=== PATIENT | female | born 1975 | race Caucasian/White ===

== ENCOUNTER 2020-06-23 08:28 | Emergency (ER) | payer OTHER, BC, SELFPAY ==
--- NOTE | ~2020-06-23 | XR_ITS ---
EXAMINATION: XR finger 1st RT min 2V DATE: 06/23/2020 09:04 INDICATION: Trauma to the right thumb TECHNIQUE: Dorsal palmar, lateral and 2 oblique views of the right first digit were obtained COMPARISON: None FINDINGS: Nondisplaced oblique fracture extending across the radial side of the tuft of the right first distal phalanx. No other fractures identified. Bone alignment is normal. Joint spaces are normal. IMPRESSION: 1. Nondisplaced tuft fracture at the right first distal phalanx. Reviewed, dictated and finalized at location A. OR MARKET INTELLIGENCE CONSULTANT
[2020-06-23 08:40] VITALS: BP 121/72; PULSE 91; RESP 20; TEMP 36.5; O2SAT 99
--- NOTE | 2020-06-23 10:17 | ED.UPPEXIN ---
HPI - Extremity Injury (Upper) General Chief Complaint: Extremity Injury, Upper Stated Complaint: right hand injury Time Seen by Provider: 06/23/20 08:49 Source: patient Mode of arrival: ambulatory Limitations: no limitations History of Present Illness HPI narrative: This is a 44-year-old female that presents the emergency department for right thumb injury sustained last night. Reports she accidentally caught the thumb in a door. Reports since she has had bruising and pain to the area. Reports decreased range of motion due to pain. Denies numbness. Related Data Allergies Allergy/AdvReac Type Severity Reaction Status Date / Time No Known Allergies Allergy Verified 06/23/20 08:48 Review of Systems Review of Systems: Narrative: CONSTITUTIONAL: Denies fever MUSCULOSKELETAL: Reports joint pain, and myalgia. NEUROLOGIC: Denies numbness All systems reviewed & are unremarkable except as noted in HPI and below PMFSH Past Medical History Medical History (Updated 06/23/20 @ 10:21 by Emmanuelle Perez PA-C) History of gastroesophageal reflux (GERD) Surgical History Surgical History (Updated 06/23/20 @ 10:17 by Emmanuelle Perez PA-C) History of cholecystectomy History of hysterectomy Family History Family History (Updated 03/10/14 @ 07:13 by DOCTOR UNKNOWN) Other Asthma Diabetes mellitus Family history of arthritis Family history of heart disease in male family member before age 55 Hypertension Social History Social History Smoking status: Never smoker Alcohol intake: current Gender identity (if verbalized by the patient): Female Exam Narrative: Exam Narrative: GENERAL: Well-appearing, well-nourished, and in no acute distress. HEAD: Normocephalic, atraumatic. EYES: EOMI. EXTREMITIES: Normal range of motion. Moderate ecchymosis to the right thumb palmar surface. Small amount of ecchymosis to the base of the nail. Normal sensation. Normal radial pulses SKIN: Warm, dry, no rash. NEURO: No focal deficits. Alert and oriented x3. PSYCH: Normal mood and affect Course Vital Signs Vital signs: Vital Signs Temperature 97.7 F 06/23/20 08:40 Pulse Rate 91 06/23/20 08:40 Respiratory Rate 20 06/23/20 08:40 Blood Pressure 121/72 06/23/20 08:40 Pulse Oximetry 99 06/23/20 08:40 Temperature 97.7 F 06/23/20 08:40 Pulse Rate 91 06/23/20 08:40 Respiratory Rate 20 06/23/20 08:40 Blood Pressure 121/72 06/23/20 08:40 Pulse Oximetry 99 06/23/20 08:40 MDM - Extremity Injury (Upper) MDM Narrative Medical decision making narrative: Patient presents the emergency department for right thumb injury sustained last night. X-ray shows a nondisplaced tuft fracture. Patient placed in a finger splint and given hand surgery for follow-up. She was instructed to rest, ice and take pain medication as needed. She was given warnings to return to the ER Imaging Data Radiologist's impression: ITS Impressions Finger X-Ray 06/23/20 09:05 IMPRESSION: 1. Nondisplaced tuft fracture at the right first distal phalanx. Critical Care Time Critical Care Time Critical Care Time: No Discharge Plan Discharge Clinical Impression: Closed fracture of tuft of distal phalanx of right thumb Patient Disposition: Home, Self-Care Condition: Stable Instructions: Finger Fracture (ED) Additional Instructions: Return to the emergency department if you experience fever, redness and swelling of your hand, your thumb feels cold, numbness, or any other symptoms that are concerning to you Rest. Elevate. Ice to the area. Pain medication as needed Follow-up with hand surgery. Call today to make an appointment Follow-up/Referrals: Jeff Galeas MD [Physician] - 3 Days RAFAT,LEONA GONZALEZ [Primary Care Provider] - Tuan Potter MD [Physician] - 3 Days
== END 2020-06-23 10:43 | disposition home or self-care (01) ==
PROVIDERS: Emergency Provider Emergency Medicine; PCP Nurse Practitioner Family
DX: S62.524A Nondisplaced fracture of distal phalanx of right thumb, initial encounter for closed fracture (principal); K21.9 Gastro-esophageal reflux disease without esophagitis; W23.0XXA Caught, crushed, jammed, or pinched between moving objects, initial encounter
CPT/HCPCS: 29130; 73140; 99284

== ENCOUNTER 2020-08-31 14:47 | Outpatient (CLI) | payer OTHER, BC, SELFPAY ==
--- NOTE | ~2020-08-31 | MM_ITS ---
EXAMINATION: MM screening [facility] BI w [facility] HISTORY: Screening TECHNIQUE: Craniocaudal and mediolateral oblique 3-D tomosynthesis images were obtained and synthetic 2-D images were generated. CAD analysis was submitted and interpreted. COMPARISON: 07/04/2015 BREAST PARENCHYMAL COMPOSITION: There are scattered areas of fibroglandular density. FINDINGS: There is no evidence of suspicious mass, calcification, or architectural distortion to sugg est malignancy in either breast. There has been no suspicious interval change. IMPRESSION: 1. No mammographic evidence of malignancy. 2. Recommend routine screening mammography in one year. BI-RADS Category 1: Negative Reviewed, dictated and finalized at location A. TING ENGINE OPERATOR
== END 2020-08-31 14:48 | disposition home or self-care (01) ==
LOC: ANHIMG 14:52
PROVIDERS: PCP Nurse Practitioner Family; Visit Provider Obstetrics & Gynecology
DX: Z12.31 Encounter for screening mammogram for malignant neoplasm of breast (principal)
CPT/HCPCS: 77063; 77067

== ENCOUNTER → 2020-09-12 00:32 | Outpatient (CLI) | payer BC, SELFPAY ==
[2020-09-12 19:08] LABS: SARS-CoV-2 RNA PCR Negative
== END ==
PROVIDERS: PCP Nurse Practitioner Family; Visit Provider Obstetrics & Gynecology
DX: Z01.812 Encounter for preprocedural laboratory examination (principal); Z20.822 Contact with and (suspected) exposure to COVID-19
CPT/HCPCS: C9803; U0003; U0005

== ENCOUNTER 2020-09-12 15:01 | Outpatient (CLI) | payer BC, SELFPAY | END 2020-09-12 15:02 | disposition home or self-care (01) | PROVIDERS: PCP Nurse Practitioner Family; Visit Provider Obstetrics & Gynecology | DX: Z01.812 Encounter for preprocedural laboratory examination (principal); N83.209 Unspecified ovarian cyst, unspecified side | CPT/HCPCS: 36415; 86850; 86900; 86901 ==

== ENCOUNTER 2020-09-15 00:41 | Day surgery (SDC) | payer BC, SELFPAY ==
[2020-09-11 18:08] VITALS: BMI 33.8
--- NOTE | 2020-09-12 10:19 | PM.IMHP ---
H&P: HPI History of Present Illness Date/Time: 09/12/20 10:19 Chief Complaint: left ov cyst Narrative: Wendy Eubanks is a 45 year old female status post hysterectomy is admitted for laparoscopy and left salpingo-oophorectomy. She has a complex left ovarian cyst that has been present for more than 6 months and she would like to have a definitively removed. Risks and benefits reviewed including but not exclusive of , aspiration pneumonia, bleeding, transfusion, perforation injury to bowel, bladder, ureters, or other internal organs with need for laparotomy. She received the [employer] handout entitled laparoscopy. She had all questions answered. She asked to proceed Review of Systems Review of Systems: All systems reviewed & are unremarkable except as noted in HPI and below PMFSH Past Medical History Medical History History of gastroesophageal reflux (GERD) Surgical History Surgical History History of cholecystectomy History of hysterectomy Family History Family History Other Asthma Diabetes mellitus Family history of arthritis Family history of heart disease in male family member before age 55 Hypertension Social History Social History Smoking status: Never smoker Second hand tobacco smoke exposure: No Alcohol intake: current Substance use: never Gender identity (if verbalized by the patient): Female Spiritual care concerns: No Meds Home Medications and Allergies Home Medications Medication Instructions Recorded Confirmed Type cholecalciferol (vitamin D3) 25 mcg PO DAILY 09/11/20 09/11/20 History [Vitamin D3] fexofenadine-pseudoephedrine 1 tablet PO QAM 09/11/20 09/11/20 History [Chastity-D 24 Hour] montelukast [Singulair] 10 mg PO DAILY 09/11/20 09/11/20 History pantoprazole 40 mg PO DAILY 09/11/20 09/11/20 History vitamin B complex [B 1 tablet PO DAILY 09/11/20 09/11/20 History Complex-Vitamin B12] Allergies Allergy/AdvReac Type Severity Reaction Status Date / Time No Known Allergies Allergy Verified 09/11/20 17:47 Exam Const: General: no acute distress Eyes: General: appearance normal, both eyes and all related structures Neck: Neck: supple and no JVD Thyroid: thyroid normal Resp: Effort & Inspection: normal respiratory effort Auscultation: clear to auscultation bilaterally Cardio: Rate: regular rate Rhythm: regular rhythm GI: Inspection: non-distended GI Palp: Yes Soft to palpation, No Tenderness to palpation present (GI) and No Guarding due to palpation present (GI) Auscultation: normal bowel sounds : General: Yes bladder normal to inspection External Female Exam: normal external appearance Speculum Exam - Cervix: Cervix absent Bimanual exam- vagina & uterus: uterus absent Skin: General skin exam: no rashes or lesions noted Extrem: General: normal to inspection and no edema Psych: Mental Status: mental status grossly normal Affect: normal affect Assessment and Plan Additional Plan impression: Complex left ovarian cyst Plan: Laparoscopic left salpingo-oophorectomy
[2020-09-15] VITALS (9 sets, daily range): BP systolic 116–142; BP diastolic 54–77; PULSE 77–97; RESP 16–22; TEMP 36.1–36.3; O2SAT 97–100
--- NOTE | 2020-09-15 07:01 | WPDHPUPDATE1 ---
History and Physical Update Update Date/Time: 09/15/20 07:01 History and Physical has been reviewed, including an updated exam of the patient. There are NO changes in the patient's condition. Risks, benefits, and alternatives have been discussed and questions answered. Patient agrees to proceed with procedure.
[2020-09-15] MEDS: LACTATED RINGERS 1,000 ML 30 ML IV CONT ×2 (11:05→13:11)
[2020-09-15] MEDS: KETOROLAC 15 MG/ML VIAL (*BKC) IV PUSH (11:14)
[2020-09-15] MEDS: ACETAMINOPHEN 500 MG TABLET 1000 MG PO (11:14)
--- NOTE | 2020-09-15 11:25 | WPDANESEPPF ---
Anes - Initial Pre Proc Eval Procedure: Operation Date: 09/15/20 12:30 Proposed Procedures p Laparoscopic Left Salpingo-Oophorectomy - Mauricio Carias MD Date/Time: 09/15/20 11:25 Surgeon: Mauricio Carias MD Pre Op Diagnosis: Left Ovarian Cyst, Pain Patient Data Age: 45 Gender: F Height: 5 ft 1 in Weight: 81.19 kg Allergies Allergy/AdvReac Type Severity Reaction Status Date / Time No Known Allergies Allergy Verified 09/15/20 11:05 Home Medications Medication Instructions Recorded Confirmed Type cholecalciferol (vitamin D3) 25 mcg PO DAILY 09/11/20 09/11/20 History [Vitamin D3] fexofenadine-pseudoephedrine 1 tablet PO QAM 09/11/20 09/11/20 History [Chastity-D 24 Hour] montelukast [Singulair] 10 mg PO DAILY 09/11/20 09/11/20 History pantoprazole 40 mg PO DAILY 09/11/20 09/11/20 History vitamin B complex [B 1 tablet PO DAILY 09/11/20 09/11/20 History Complex-Vitamin B12] hydrocodone-acetaminophen 1 tablet PO Q6H PRN #30 tablet 09/15/20 Rx Patient hx anesthesia problems: post op nausea/vomiting Family hx anesthesia problems: none PMFSH Past Medical History Medical History History of gastroesophageal reflux (GERD) Surgical History Surgical History History of cholecystectomy History of hysterectomy Family History Family History Other Asthma Diabetes mellitus Family history of arthritis Family history of heart disease in male family member before age 55 Hypertension Social History Social History Smoking status: Never smoker Second hand tobacco smoke exposure: No Alcohol intake: current Alcohol use details: occassionally Substance use: never Living arrangements: with family Gender identity (if verbalized by the patient): Female Spiritual care concerns: No Anes - Eval Final PreProcedure Day of Procedure 09/15/20 11:25 Patient weight: overweight Heart: regular rate and rhythm Lungs: clear to auscultation Airway: Mallampati scale class II Neurological: alert and oriented Last oral intake: >/= 8 hours ASA classification: II Emergent: no Anesthetic plan: proceed Anesthesia type and monitoring: general ETT and standard monitoring Informed Consent: The patient's anesthetic plan and its attendant risks and benefits were discussed with the patient/family/POA. Questions were solicited and answers provided to the satisfaction of the patient/family/POA.
[2020-09-15] MEDS: SCOPOLAMINE 1.5 MG PATCH TRANSDERM (12:20)
--- NOTE | 2020-09-15 12:37 | PM.PROC ---
Procedure Note - Detailed Date of procedure: 09/15/20 Pre-op diagnosis: Left Ovarian Cyst, Pain Surgeon: Mauricio Carias MD Postop diagnosis: Complex left ovarian cyst/pelvic pain Procedure: Laparoscopic left salpingo-oophorectomy and lysis of adhesions Anesthesia: General endotracheal EBL: 5cc Findings: Absent uterus. Complex left ovarian cyst. Normal-appearing right ovary. Pelvic adhesions along the left lateral sidewall Complications: None Description procedure: The patient was prepped and draped in the normal sterile fashion placed in the dorsal lithotomy position. Under excellent general endotracheal anesthesia weighted speculum was placed in posterior fornix vagina. Sponge stick was placed in the bladder drained of clear urine. The weighted speculum was removed. The gloves were changed. A supraumbilical incision made the Veress needle passed in the abdomen. The abdomen was filled with CO2 gas [id number]. The 5mm trocar advanced under direct visualization assuring no injury. The patient was placed in Trendelenburg and a suprapubic incision made. The 5mm trocar was advanced under direct visualization assuring no injury a left lower quadrant incision made 8mm trocar advanced under direct visualization assuring no injury. Pelvic adhesions were seen along the left lateral sidewall these were sharply dissected relieving the colon and small bowel from over the top of the tubo-ovarian complex on the left. A large ovarian cyst was seen the right ovary appeared within normal limits and photo documentation was undertaken. The left infundibulopelvic structure was then skeletonized. This was serially clamped, burned, cut with the LigaSure. This was placed in Endo-Catch and removed through the left lower quadrant. Irrigation was undertaken until clear. All pedicles appeared dry. The patient was awakened. The gas removed after gas removed from the abdomen and the incisions closed with 4 Monocryl glue. All sponge, needle instrument counts were correct. There were no immediate complications
--- NOTE | 2020-09-15 12:46 | SUR.OPER ---
URINE 50ML EBL 5ML
[2020-09-15] MEDS: fentaNYL CITRATE INJ (*CRX) 100 MCG/2 ML VIAL 25 MCG IV PUSH ×4 (13:10→13:33)
== END 2020-09-15 15:04 | disposition home or self-care (01) ==
PROVIDERS: PCP Nurse Practitioner Family; Visit Provider Obstetrics & Gynecology
PROC: (CPT 49320; principal; 2020-09-15 12:30)
DX: N83.02 Follicular cyst of left ovary (principal); N83.8 Other noninflammatory disorders of ovary, fallopian tube and broad ligament; N73.6 Female pelvic peritoneal adhesions (postinfective); R10.2 Pelvic and perineal pain; K21.9 Gastro-esophageal reflux disease without esophagitis
CPT/HCPCS: 58661; 88305; A9270; J0330; J1100; J1885; J2250; J2405; J2704; J3010; J7120

== ENCOUNTER 2022-10-10 12:54 | Day surgery (SDC) | payer BC, SELFPAY ==
[2022-10-10] VITALS (10 sets, daily range): BP systolic 109–153; BP diastolic 63–96; PULSE 79–110; RESP 15–20; TEMP 36.3–36.6; O2SAT 92–100
--- NOTE | ~2022-10-10 | US_ITS ---
EXAMINATION: US pelvic complete w TV DATE: 10/10/2022 14:29 INDICATION: Right pelvic mass. TECHNIQUE: Multiple transabdominal and transvaginal sonographic images of the pelvis were obtained. COMPARISON: CT abdomen and pelvis 10/10/2022, 07/10/2018 FINDINGS: TRANSABDOMINAL ULTRASOUND: The uterus is absent. There is no free fluid in the pelvis. TRANSVAGINAL ULTRASOUND: The right ovary measures 9.0 x 5.7 x 7.3 cm. There is a multiloculated cystic mass with thick septati ons in the right ovary measuring 6.7 cm. There is vascular flow in the right ovary. The left ovary is not visualized and reportedly absent. IMPRESSION: 1. 6.7 cm cystic mass in the right ovary suspicious for neoplasm. Consider surgical evaluation. Reviewed, dictated and finalized at [facility]. IMPRESSION: 1. 6.7 cm cystic mass in the right ovary suspicious for neoplasm. Consider surg ical evaluation.
--- NOTE | ~2022-10-10 | CT_ITS ---
EXAMINATION: CT abdomen pelvis wo con DATE: 10/10/2022 13:23 INDICATION: Right flank pain for one day TECHNIQUE: Computed tomography (CT) of the abdomen and pelvis was performed without intravenous contr ast. Automated exposure control and iterative reconstruction technique were employed. Exam dose: 304 .66 mGy-cm total exam DLP. COMPARISON: 07/10/2018 CT abdomen pelvis FINDINGS: The lung bases are clear. Normal heart size. No pericardial or pleural effusion. Status post cholecystectomy. The liver, bile ducts, pancreas, pancreatic duct and spleen are unremark able. Normal morphology of the adrenal glands. There is a pinpoint nonobstructing lower pole right renal calculus. Approximately 4.5 mm upper pole left renal calculus. Approximately 2.3 mm lower pole nonobstructing l eft renal calculus. No ureteral calculi or hydroureteronephrosis. The urinary bladder is relatively e vacuated. Normal caliber of the abdominal aorta. No intraperitoneal or retroperitoneal or pelvic adenopathy or ascites. Up to 5.8 x 6.6 x 7.6 cm lobular complex mixed septated cystic and solid right parasagittal pelvic ma ss sitting atop the urinary bladder. Ovarian neoplasm or ovarian torsion should be considered. Gyneco logic consult is recommended. History of hysterectomy. Normal appendix. Colonic diverticula; no CT evidence of diverticulitis. No bowel obstruction or intra peritoneal free air. Small fat-containing umbilical hernia. IMPRESSION: Right parasagittal pelvic complex up to 7.6 cm mass; ovarian neoplasm is suspected. Melani ot exclude ovarian torsion. History of hysterectomy Diverticulosis of the colon Status post cholecystectomy Mild bilateral nonobstructive nephrolithiasis Dr. Russo telephoned the report on 10/10/2022 to emergency room physician Dr. Barnard. Reviewed, dictated and finalized at [facility]. Reviewed, dictated and finalized at [facility]. IMPRESSION: Right parasagittal pelvic complex up to 7.6 cm mass; ovarian neopl asm is suspected. Cannot exclude ovarian torsion. History of hysterectomy Diverticulosis of the colon Status post cholecystectomy Mild bilateral nonobstructive nephrolithiasis Dr. Russo telephoned the report on 10/10/2022 to emergency room physician Dr. Colleen arita.
--- NOTE | 2022-10-10 13:14 | ED.GENADULT ---
HPI - General Adult General Chief complaint: Back Pain/Injury Stated complaint: kidney stone? Time Seen by Provider: 10/10/22 13:03 Source: RN notes reviewed History of Present Illness HPI narrative: Patient presents emergency part from home for right flank pain. Patient states pain began suddenly approximately 4 hours ago. Pain is located in the right flank and radiates around to the right side of the abdomen described as sharp and stabbing in nature. Associate with nausea. Denies any fevers or chills chest pain shortness of breath vomiting diarrhea or any other symptoms. States he is not taking thing for the pain. Patient has a history of previous kidney stones and feels similar to prior. States he has been seen by Dr. Albright and required lithotripsy in the past Related Data Home Medications Medication Instructions Recorded Confirmed cholecalciferol (vitamin D3) 25 25 mcg PO DAILY 09/11/20 09/11/20 mcg (1,000 unit) tablet (Vitamin D3) fexofenadine-pseudoephedrine ER 1 tablet PO QAM 09/11/20 09/11/20 180 mg-240 mg tablet,ext.release 24 hr (Chastity-D 24 Hour) montelukast 10 mg tablet 10 mg PO DAILY 09/11/20 09/11/20 (Singulair) pantoprazole 40 mg tablet,delayed 40 mg PO DAILY 09/11/20 09/11/20 release vitamin B complex (B 1 tablet PO DAILY 09/11/20 09/11/20 Complex-Vitamin B12 tablet) Allergies Allergy/AdvReac Type Severity Reaction Status Date / Time No Known Allergies Allergy Verified 09/15/20 11:05 Review of Systems Review of Systems: Gen.: Denies fevers or chills ENT: Denies congestion Respiratory: Denies shortness of breath or cough CV: Denies chest pain or palpitations GI: See HPI denies burning, urgency, frequency or hematuria Musculoskeletal: Denies back pain or muscle pain Neuro: Denies numbness, tingling, weakness or focal weakness Skin: Denies rash Except as documented, all other systems reviewed and negative FORMERLY [facility], [facility] Past Medical History Medical History (Updated 10/10/22 @ 15:43 by Tuan Barnard DO) History of gastroesophageal reflux (GERD) Kidney stone Obesity Torsion of right ovary and ovarian pedicle Surgical History Surgical History History of cholecystectomy History of hysterectomy Family History Family History Other Asthma Diabetes mellitus Family history of arthritis Family history of heart disease in male family member before age 55 Hypertension Social History Social History Smoking status: Never smoker Second hand tobacco smoke exposure: No Alcohol intake: current Alcohol use details: occassionally Substance use: never Living arrangements: with family Gender identity (if verbalized by the patient): Female Spiritual care concerns: No Exam Narrative: APPEARANCE: No acute distress, nontoxic, resting in bed HEENT: Normocephalic, atraumatic, OMM RESPIRATORY: No respiratory distress, clear to auscultation bilaterally with no rhonchi wheezing or rales CARDIOVASCULAR: RRR s murmur ABDOMINAL: Soft nondistended tender palpation right upper quadrant right lower quadrant no tenderness in left upper quadrant left lower quadrant no rebound or guarding, right flank tenderness MUSCULOSKELETAl: Moves all extremities. No clubbing, cyanosis or edema. NEURO: Awake and alert. Following commands, speech normal, no focal deficits SKIN:: Warm, dry. Normal Color PSYCHIATRIC: Normal affect/mood Course Course Emergency Course: Discussed with Dr. Russo for radiology following CT scan no signs of kidney stone with ovarian mass on right ovary concern of torsion will obtain ultrasound Reviewed ultrasound with Dr. Cook for radiology does note that there could be concern for torsion 1504 Dr. Shashi Ha down in the emergency department to evaluate patient Discussed with aziza
[2022-10-10] MEDS: SODIUM CHLORIDE 0.9% IV 1,000 ML 999 ML IV CONT (13:18)
[2022-10-10] MEDS: ONDANSETRON INJ 4 MG/2 ML VIAL IV PUSH (13:19)
[2022-10-10 13:21] LABS: Basophils Absolute Auto 0.1 K/mm3 (0.0-0.1); Basophils Percent Auto 0.7 % (0.2-1.2); Eosinophils Absolute Auto 0.1 K/mm3 (0-0.3); Eosinophils Percent Auto 1.3 % (0-4.4); Hematocrit 44.2 % (37.0-47.0); Hemoglobin 14.5 g/dL (12.0-15.0); Immature Granulocyte Absolute 0.03 K/mm3 (0.00-0.031); Immature Granulocyte Percent A 0.3 % (0-0.5); Lymphocytes Absolute Auto 5.41 K/mm3 (0.9-3.2); Lymphocytes Percent Auto 52.9 % (18.3-44.2); Mean Corpuscular HGB Conc 32.8 g/dl (32-36); Mean Corpuscular Hemoglobin 30.5 pg (26-34); Mean Corpuscular Volume 93.1 fl (80-100); Mean Platelet Volume 8.8 fl (7.4-10.4); Monocytes Absolute Auto 0.8 K/mm3 (0.1-0.6); Monocytes Percent Auto 7.5 % (2.6-8.5); Neutrophils Absolute Auto 3.8 K/mm3 (1.3-6.7); Neutrophils Percent Auto 37.3 % (45.5-73.1); Platelet Count Result 286 k/mm3 (150-375); Red Blood Count 4.75 M/mm3 (4.2-5.4); Red Cell Distribution Width 13.2 % (11.5-14.5); White Blood Count 10.2 K/mm3 (4.5-10.0)
[2022-10-10 13:23] LABS: Appearance Urine Clear (Clear); Bilirubin Urine Negative (Negative); Blood Urine Negative (Negative); Color Urine Yellow (Yellow); Glucose Urine UA Negative (Negative); Ketones Urine Negative (Negative); Leukocyte Esterase Ur Negative LEU/UL (Negative); Nitrate Urine Negative (Negative); Protein Urine Negative (Negative); Specific Grav Ur 1.022 (1.001-1.035); Urobilinogen Urine 0.2 mg/dL (<2.0)
[2022-10-10 13:25] LABS: Add Urine Microscopic? NO
[2022-10-10 13:34] LABS: Alanine Aminotransferase 37 U/L (6-35); Albumin Level 4.8 g/dL (3.5-5.1); Alkaline Phosphatase 95 U/L (38-126); Anion Gap 8 mmol/L (8-16); Aspartate Amino Transferase 36 U/L (14-36); Bilirubin,Total 0.8 mg/dL (0.2-1.3); Blood Urea Nitrogen 14 mg/dL (7-17); Calcium 9.1 mg/dL (8.4-10.2); Carbon Dioxide 30 mmol/L (22-30); Chloride 101 mmol/L (98-107); Estimated CRCL calculation 91 ml/min; Estimated Glomerular Filt Rate > 60; Glucose 104 mg/dL (65-110); Lipase 126 U/L (23-300); Potassium 3.5 mmol/L (3.4-5.0); Sodium 139 mmol/L (137-145)
[2022-10-10 13:43] LABS: Atypical Lymphocytes Present; Platelet Estimate Adequate (Adequate); Schistocytes None Seen (NORMAL)
[2022-10-10] MEDS: MORPHINE SULFATE (*CRX) 2 MG/ML INJ IV PUSH (13:48)
[2022-10-10] MEDS: PROMETHAZINE HCL 25 MG/ML AMPUL 12.5 MG IV PUSH (14:42)
[2022-10-10] MEDS: MORPHINE SULFATE (*CRX) 4 MG/ML INJ IV PUSH (14:59)
--- NOTE | 2022-10-10 15:11 | PM.IMHP ---
H&P: HPI History of Present Illness Date/Time: 10/10/22 15:11 Chief Complaint: Severe abdominal pain Narrative: this 47-year-old female status post hysterectomy left salpingo-oophorectomy with a sudden onset of severe pain. CT and ultrasound in the ER notes what appears to be a torsion. She is admitted for laparoscopic right salpingo-oophorectomy with possible open laparotomy. Risks and benefits were reviewed in great detail PMF Past Medical History Medical History History of gastroesophageal reflux (GERD) Kidney stone Surgical History Surgical History History of cholecystectomy History of hysterectomy Family History Family History Other Asthma Diabetes mellitus Family history of arthritis Family history of heart disease in male family member before age 55 Hypertension Social History Social History Smoking status: Never smoker Second hand tobacco smoke exposure: No Alcohol intake: current Alcohol use details: occassionally Substance use: never Living arrangements: with family Gender identity (if verbalized by the patient): Female Spiritual care concerns: No Meds Home Medications and Allergies Home Medications Medication Instructions Recorded Confirmed Type cholecalciferol (vitamin D3) 25 25 mcg PO DAILY 09/11/20 09/11/20 History mcg (1,000 unit) tablet (Vitamin D3) fexofenadine-pseudoephedrine ER 1 tablet PO QAM 09/11/20 09/11/20 History 180 mg-240 mg tablet,ext.release 24 hr (Chastity-D 24 Hour) montelukast 10 mg tablet 10 mg PO DAILY 09/11/20 09/11/20 History (Singulair) pantoprazole 40 mg tablet,delayed 40 mg PO DAILY 09/11/20 09/11/20 History release vitamin B complex (B 1 tablet PO DAILY 09/11/20 09/11/20 History Complex-Vitamin B12 tablet) hydrocodone 5 mg-acetaminophen 300 1 tablet PO Q6H PRN pain #30 tabs 09/15/20 Rx mg tablet Allergies Allergy/AdvReac Type Severity Reaction Status Date / Time No Known Allergies Allergy Verified 09/15/20 11:05 Vital Signs Vital Signs - 24 hr 10/10/22 13:00 10/10/22 14:58 Temperature 97.9 F Pulse Rate 92 85 Respiratory Rate 16 18 Blood Pressure 150/78 H 128/96 H Pulse Oximetry 98 100 Oxygen Delivery Room Air Exam Const: General: cooperative, healthy appearing and in distress Nutritional Appearance: overweight Orientation/consciousness: oriented to person, oriented to place and oriented to time HENMT: Head: normal to inspection Resp: Effort & Inspection: normal respiratory effort Cardio: Rate: regular rate Rhythm: regular rhythm Heart sounds: S1 normal heart sound present and S2 normal heart sound present GI: Inspection: normal to inspection GI Palp: Yes abdominal tenderness : Speculum Exam - Vagina: normal appearance of the vagina Speculum Exam - Cervix: normal appearance of the cervix H&P: Results Labs Labs: Short CBC 10/10/22 Range/Units 13:13 WBC 10.2 H (4.5-10.0) K/mm3 Hgb 14.5 (12.0-15.0) g/dL Hct 44.2 (37.0-47.0) % Plt Count 286 (150-375) k/mm3 BMP 10/10/22 13:13 Sodium 139 Potassium 3.5 Chloride 101 Carbon Dioxide 30 BUN 14 Creatinine 0.60 L Glucose 104 Calcium 9.1 Liver Function 10/10/22 Range/Units 13:13 Total Bilirubin 0.8 (0.2-1.3) mg/dL AST 36 (14-36) U/L ALT 37 H (6-35) U/L Alkaline Phosphatase 95 (38-126) U/L Albumin 4.8 (3.5-5.1) g/dL Urine 10/10/22 Range/Units 13:14 Urine Color Yellow (Yellow) Urine Appearance Clear (Clear) Urine pH 5.0 (5.0-9.0) Ur Specific [place] 1.022 (1.001-1.035) Urine Protein Negative (Negative) mg/dL Urine Glucose (UA) Negative (Negative) mg/dL Assessment and Plan Assessment and pl
--- NOTE | 2022-10-10 15:14 | WPDHPUPDATE1 ---
History and Physical Update Update Date/Time: 10/10/22 15:14 History and Physical has been reviewed, including an updated exam of the patient. There are NO changes in the patient's condition. Risks, benefits, and alternatives have been discussed and questions answered. Patient agrees to proceed with procedure.
--- NOTE | 2022-10-10 15:16 | WPDANESEPPF ---
Anes - Initial Pre Proc Eval Procedure: Operation Date: 10/10/22 19:30 Proposed Procedures p Laparoscopic Right Salpingo Oophorectomy - Mauricio Ha MD Date/Time: 10/10/22 15:16 Pre Op Diagnosis: kidney stone? Patient Data Age: 47 Gender: F Height: 1.55 m Weight: 78.4 kg Last Vital Signs Temp 36.6 C 10/10/22 13:00 Pulse 85 10/10/22 14:58 Resp 18 10/10/22 14:58 BP 128/96 H 10/10/22 14:58 Pulse Ox 100 10/10/22 14:58 O2 Del Method Room Air 10/10/22 13:00 Allergies Allergy/AdvReac Type Severity Reaction Status Date / Time No Known Allergies Allergy Verified 09/15/20 11:05 Home Medications Medication Instructions Recorded Confirmed Type cholecalciferol (vitamin D3) 25 25 mcg PO DAILY 09/11/20 09/11/20 History mcg (1,000 unit) tablet (Vitamin D3) fexofenadine-pseudoephedrine ER 1 tablet PO QAM 09/11/20 09/11/20 History 180 mg-240 mg tablet,ext.release 24 hr (Chastity-D 24 Hour) montelukast 10 mg tablet 10 mg PO DAILY 09/11/20 09/11/20 History (Singulair) pantoprazole 40 mg tablet,delayed 40 mg PO DAILY 09/11/20 09/11/20 History release vitamin B complex (B 1 tablet PO DAILY 09/11/20 09/11/20 History Complex-Vitamin B12 tablet) hydrocodone 5 mg-acetaminophen 300 1 tablet PO Q6H PRN pain #30 tabs 09/15/20 Rx mg tablet hydrocodone 5 mg-acetaminophen 325 1 tablet PO Q4H PRN pain #20 tabs 10/10/22 Rx mg tablet Laboratory Tests 10/10/22 10/10/22 10/10/22 13:13 13:13 13:14 WBC 10.2 K/mm3 H K/mm3 (4.5-10.0) RBC 4.75 M/mm3 M/mm3 (4.2-5.4) Hgb 14.5 g/dL g/dL (12.0-15.0) Hct 44.2 % % (37.0-47.0) MCV 93.1 fl fl (80-100) MCH 30.5 pg pg (26-34) MCHC 32.8 g/dl g/dl (32-36) RDW 13.2 % % (11.5-14.5) Plt Count 286 k/mm3 k/mm3 (150-375) MPV 8.8 fl fl (7.4-10.4) Immature Gran % (Auto) 0.3 % % (0-0.5) Neut % (Auto) 37.3 % L % (45.5-73.1) Lymph % (Auto) 52.9 % H % (18.3-44.2) [place] % (Auto) 7.5 % % (2.6-8.5) Eos % (Auto) 1.3 % % (0-4.4) Baso % (Auto) 0.7 % % (0.2-1.2) Lymph # (Auto) 5.41 K/mm3 H K/mm3 (0.9-3.2) [place] # (Auto) 0.8 K/mm3 H K/mm3 (0.1-0.6) Eos # (Auto) 0.1 K/mm3 K/mm3 (0-0.3) Baso # (Auto) 0.1 K/mm3 K/mm3 (0.0-0.1) Abs Immat Gran (auto) 0.03 K/mm3 K/mm3 (0.00-0.031) Absolute Neuts (auto) 3.8 K/mm3 K/mm3 (1.3-6.7) Absolute Nucleated RBC 0.0 K/mm3 K/mm3 (0.0-0.012) Nucleated RBC % 0.0 % % (0.0-0.2) Atypical Lymphocytes Present Platelet Estimate Adequate (Adequate) Schistocytes None seen (NORMAL) Sodium 139 mmol/L mmol/L (137-145) Potassium 3.5 mmol/L mmol/L (3.4-5.0) Chloride 101 mmol/L mmol/L (98-107) Carbon Dioxide 30 mmol/L mmol/L (22-30) Anion Gap 8 mmol/L mmol/L (8-16) BUN 14 mg/dL mg/dL (7-17) Creatinine 0.60 mg/dL L mg/dL (0.7-1.0) Estim Creat Clear Calc 91 ml/min ml/min Estimated GFR > 60 (59 - ) Glucose 104 mg/dL mg/dL (65-110) Calcium 9.1 mg/dL mg/dL (8.4-10.2) Total Bilirubin 0.8 mg/dL mg/dL (0.2-1.3) AST 36 U/L U/L (14-36) ALT 37 U/L H U/L (6-35) Alkaline Phosphatase 95 U/L U/L (38-126) Total Protein 8.0 g/dL g/dL (6.3-8.2) Albumin 4.8 g/dL g/dL (3.5-5.1) Lipase 126 U/L U/L (23-300) Urine Color Yellow (Yellow) Urine Appearance Clear (Clear) Urine pH 5.0 (5.0-9.0) Ur Specific [place] 1.022 (1.001-1.035) Urine Protein Negative mg/dL mg/dL (Negative) Urine Glucose (UA) Negative mg/dL mg/dL (Negative) Urine Ketones Negative mg/
[2022-10-10] MEDS: ceFAZolin SODIUM 1 GM VIAL 2 GM IV PUSH (15:39)
--- NOTE | 2022-10-10 16:02 | W.PM.PROC2 ---
Procedure Note - Detailed Date of Procedure 10/10/22 Pre-op Diagnosis Torsion right ovarian cyst Post-op Diagnosis Same Procedure Performed laparoscopic [facility] Surgeon Mauricio Ha MD Anesthesia General Indications this is a 47 year status post hysterectomy and left salpingo-oophorectomy admitted with severe pain through the ER. She had a pelvic mass on right she was status post hysterectomy and left salpingo-oophorectomy appeared to be an acute torsion. Findings Torsion of the right adnexa. Left tube and ovary absent as was the uterus Description of Procedure patient was prepped draped in normal sterile fashion placed in the dorsal lithotomy position. Under excellent general trach anesthesia weighted speculum placed in posterior fornix vagina. Sponge stick was placed to use for vaginal manipulation and the bladder drained of clear urine about 100cc. The weighted speculum was removed and the gloves were changed. A supraumbilical incision made the Veress needle passed in the abdomen. Abdomen filled with CO2 gas [id number]. The 5mm trocar advanced with the Optiview and no injury seen. Patient placed in Trendelenburg and a suprapubic incision made. The 5mm trocar advanced under direct visualization assuring no injury. This torsion was noted and photo documentation was undertaken. A right lower quadrant incision made and the 810mm trocar advanced under direct visualization assuring no injury. The LigaSure was placed across the infundibulopelvic structure clamped burned and then the specimen placed in an Endo-Catch. Hemostasis was assured after irrigating the bloody serous fluid cul-de-sac etc. the a pedicle appeared dry after removing the specimen bag through the right lower quadrant. The gas was released the patient was placed out of Trendelenburg. The incisions closed with 4 Monocryl and glue. The instruments removed from vagina and the patient was awakened. All sponge, needle, instrument counts were correct. There were no immediate complications. Estimated Blood Loss 5 Drains No Packing No Pathology Yes Complications No immediate complications Condition Stable Disposition PACU
[2022-10-10] MEDS: LACTATED RINGERS 1,000 ML 30 ML IV CONT ×2 (16:09→16:10)
[2022-10-10] MEDS: fentaNYL CITRATE INJ (*CRX) 100 MCG/2 ML VIAL 25 MCG IV PUSH ×4 (16:28→17:04)
[2022-10-10] MEDS: oxyCODONE HCL (*CRX) 5 MG TAB IR PO (17:47)
[2022-10-13 03:39] LABS: CA-125 23 U/mL (<35)
== END 2022-10-10 18:28 | disposition home or self-care (01) ==
LOC: ANHED 15:02 → ANHSURGERY 15:17
PROVIDERS: Emergency Provider Emergency Medicine; PCP Nurse Practitioner Family; Visit Provider Obstetrics & Gynecology
PROC: (CPT 49320; principal; 2022-10-10 19:30)
DX: N83.511 Torsion of right ovary and ovarian pedicle (principal); D27.0 Benign neoplasm of right ovary; Z90.710 Acquired absence of both cervix and uterus; K21.9 Gastro-esophageal reflux disease without esophagitis
CPT/HCPCS: 58661; 36415; 74176; 76830; 76856; 80053; 81003; 83690; 85025; 86304; 88305; 96365; 96375; 96376; 99284; A9270; J0131; J0330; J0690; J1100; J2250; J2270; J2405; J2550; J2704; J3010; J7030; J7120